=== PATIENT | female | born 1970 | race Caucasian/White ===

== ENCOUNTER 2024-03-02 10:25 | Outpatient (CLI) | payer OTHER, SELFPAY ==
--- OUTSIDE RECORDS SUMMARY | 2024-03-02 10:31 | XMS_ITS | Encounter Summary ---
Author Organization [facility] Address [address] [place] [address] Care Team Providers Care Non Food Receiving Clerk Name Role Phone Bro Damon P.A.-C., P.A. Primary Care Pr ovider Encounter Details Date Type Department Care Team (Late st Contact Info) Description 12/23/2016 Historical Ophthalmology [facility] Vincent Dietrich Jr., M.D. [address] [address] Social History Tobacco Use Types Packs/Day Years Used Date Smoking Tobacco: Never Sex and Gender Information Value Date Recorded Sex Assigned at Female 05/12/2020 4:36 PM CDT Gender Identity Female 10/06/2017 3:30 PM COFFEE ATTENDANT Sexual Orientation Straight 10/06/2017 3: 30 PM COFFEE ATTENDANT documented as of this encounter Progress Notes * Vincent Dietrich M.D. - 12/23/2016 1:35 PM CDT Eye General CHIEF COMPLAINT CE HISTORY OF PRESENT ILLNESS Thinks her vision could be better. Not sure if any specific distance has changed more. Around her left eye (starting 12-13 years ago) she has had changes. Before that she had a root canal done and caused bells palsy on the left side of her face. Sees a neurologist every 3 months for Botox injections for hemifacial blepharospasm. Now its been a while since she has seen him. [place]planed on the way [place] IMPRESSION / REPORT / PLAN #1 Blepharospasm OK for Botox if desired #2 Myopia and astigmatism Slight rx change Wants to try CL Not sure how will do with blepharospasm, but can try. DIAGNOSIS #1 Blepharospasm #2 Myopia and astigmatism CDM Reports - EYEGEN Id: [id number] Status: Fnl documented in this encounter Plan of Treatment Not on file documented as of this encounter Visit Diagnoses Not on filedocumented in this encounter Additional Health Concerns Infection Onset Date Last Indicated Resolved Time COVID19 Pending 06/17/2020 06/17/2020 06/18/2020 1 :36 PM COFFEE ATTENDANT COVID19 Pending 06/26/2020 06/26/2020 06/26/2020 1 1:29 PM COFFEE ATTENDANT COVID19 Pending 10/04/2020 10/04/2020 10/04/2020 9 :16 PM COFFEE ATTENDANT COVID19 Pending 10/01/2023 10/01/2023 10/01/2023 1 1:24 AM COFFEE ATTENDANT COVID19 Pending 10/01/2023 10/01/2023 10/01/2023 1 :37 PM COFFEE ATTENDANT documented as of this encounter Care Teams Non Food Receiving Clerk Relationship Specialty Start Date End Date Bro Damon P.A.-C., P.A. PCP - General 01/23/17 documented as of this encounter
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
--- OUTSIDE RECORDS SUMMARY | 2024-03-02 10:31 | XMS_ITS | Clinical Summary ---
Author Organization [facility] Address [address] [place] [address] Care Team Providers Care Medicare Coordinator Name Role Phone Bro Damon P.A.-C., P.A. Primary Care Pr ovider Source Comments Patient records contain information from all sites at [facility]. For routine questions regarding patient records, call [phone] during business hours, M-F 8:00 AM - 5:00 PM Central Time. 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 Express Care Online for Vaginal Yeast Infection (female anatomy, age 18-64 years) 12/16/2023 1:30 PM CDT - 12/16/2023 11:59 PM CDT Hospital Encounter Department of Laboratory Medicine in [place] [address] [place] [address] Garth Granger M.D. Menopausal And Female Climacteric States Discharge Disposition: Home or Self Care from Last 3 Months Immunizations Name Administration Dates Next Due HepB Adult (HEPLISAV-B) 05/19/2023 RZV (SHINGRIX) 05/19/2023 SARS-COV-2 (COVID-19) - MODERNA(Discontinued) ,10/19/2020 Td, (Adult) Unspecified 01/15/1996 Tdap 10/24/2021 Family History Medical History Relation Name Comments Anesthesia problems Father subhash lanza CABG x 3 - Coronary artery bypass grafts x 3 Father subahsh lanza Coronary artery disease Father subhash lanza Depression Father subhash lanza Diabetes Father subhash lanza Hyperlipidemia Father subhash lanza Hypertension Father subhash lanza Macular degeneration Father subhash lanza Rheum arthritis Father subhash lanza Sleep apnea Father subhash lanza Stroke Father subhash lanza Tuberculosis Father subhash lanza Depression Mother [place] lanza Hypothyroid Mother [place] lanza Migraines Mother [place] lanza Sleep apnea Mother ind[place] lanza Thyroid disease Mother ind[place] lanza Depression Sister 1 Hypothyroid Sister 1 Depression Sister 2 Hypothyroid Sister 2 Depression Sister 3 piper Obesity Sister 3 piper Rheum arthritis Sister 3 piper Sleep apnea Sister 3 piper Depression Sister 4 enedina Obesity Sister 4 enedina Sleep apnea Sister 4 enedina Relation Name Status Comments Father subhash lanza Mother [place] gutierresuard Sister 1 Sister 2 Sister 3 piper Sister 4 enedina Social History Tobacco Use Types Packs/Day Years Used Date Smoking Tobacco: Never Smokeless Tobacco: Never Tobacco Cessation:Counseling Given: Not Answered Alcohol Use Standard Drinks/Week Comments Not Currently 0 (1 standard drink = 0.6 oz pur e alcohol) Monthly [facility] Utilities Answer Date Recorded In the past 12 months has th e [employer], gas, oil, or water company threatened to shut off services in your [...] week 08/14/2022 How often do you attend chur or amish services? Patient declined 08/14/2022 Do you belong to any clubs o r organizations such as nondenominational groups, unions, fraternal or athletic groups, or [...] Answer Date Recorded PHQ-2 Score 6 11/13/2023 [facility] [place] of Occupat ional Health - Occupational Stress [...] your living situation today? I have a [facility] place to live 11/03/2023 Education Answer Date Recorded What is the highest level of school you have completed or the highest degree you have received? Associate degree: academic program 09/26/2019 Sex and Gender Information Value Date Recorded Sex Assigned at Female 05/12/2020 4:36 PM CDT Gender Identity Female 10/06/2017 3:30 PM GRAIN ELEVATOR MOTOR STARTER Sexual Orientation Straight 10/06/2017 3: 30 PM GRAIN ELEVATOR MOTOR STARTER Last Filed Vital Signs Vital Sign Reading [...] 11/03/2023 11:14 PM CDT Plan of Treatment Health Maintenance Due Date Last Done Comments CT Colonography 1972 Colonoscopy 1972 FIT 1972 COVID-19 Vaccine ( season) 2023 09/15/2021, 11/21/2020, 10/19/2020 Hepatitis B Vaccines (2 of 2 - CpG (Heplisav) 2-dose series) 06/16/2023 05/19/2023 Zoster Vaccines (2 of 2) 07/14/2023 05/19/2023 Depression Screening (Annual PHQ-2) 08/11/2023 Influenza Vaccine (#1) 2024 Mammogram 08/20/2024 08/20/2023, 06/12, 06/27/2021, Additional history exists Thyroid Stimulating Hormone (TSH) test for thyroid function 11/04/2024 11/05/2023, 11/03/2023, 09/27/2023, Additional history exists Cervical Cancer Screening 05/25/20252021 (Performed elsewhere), 02/22/2015 (Performed elsewhere) Cologuard 07/10/2026 07/10/2023 Colorectal Cancer Screening 07/10/2026 Fasting Glucose for Diabetes Screening 01/09/2027 01/10/2024, 11/03/2023, 09/27/2023, Additional history exists Lipid (Cholesterol) Screening 03/11/2028 03/11/2023, 04/25/2022, 09/19/2021, Additional history exists DTaP,Tdap,and Td Vaccines (2 - Td or Tdap) 10/25/2031 10/24/2021, 01/15/1996 HIV Screening Completed 09/19/2017 Hepatitis C Screening Completed 09/19/2017 Pneumococcal vaccine (0-64 years) Aged Out No longer eligible based on patient's age to complete this topic Medical Devices Implanted Type Area Grinding And Spraying Supervisor Device Identifier Shelf Expiration Date Model / Serial / Lot Screw-Matrixneur o Self-Drill Ti 4mm-Whiting [id number] Implanted:Qty: 7 on 09/19/2017 Hardware e.g. pins/screws /rods Cranial Depuy Synthes Description:Device Manufactu rer - Synthes. Device Status Text - [id number]. Mesh Rigid [place] 100mm X 100mm - Whiting [id number] Implanted:Qty: 1 on 09/19/2017 Hardware e.g. pins/screws /rods Depuy Synthes Description:Device Manufactu rer - Synthes. Device Status Text - [id number]. [place] Salvatore Fuzzy 1 X 1 - [place] [id number] Implanted:Qty: 1 on 09/19/2017 Mesh or Patch Brain EcoIntense Description:Device Manufactu [employer] Device Status Text - [id number]. [facility] Data - [id number]. Procedures Procedure Name Priority Date/Time Associated Diagnosis [...] inpatients and all outpatients) 08/20/2023 3:35 PM GRAIN ELEVATOR MOTOR STARTER Screening Mammogram Breast Cancer COLOGUARD Routine 07/10/2023 11:15 AM GRAIN ELEVATOR MOTOR STARTER Screening Cancer Colon LIPID PANEL, S Routine 03/11/2023 2:00 PM CDT Hyperlipidemia On Treatment Hypothyroidism Screening Examination Diabetes Mellitus BBF SOURCE PROFILE RAPID Routine 09/19/2017 11:05 AM GRAIN ELEVATOR MOTOR STARTER HIV-1/HIV-2 AB RAPID PT SOURCE, B Routine 09/19/2017 11:05 AM GRAIN ELEVATOR MOTOR STARTER from Last 3 Months or Most Recently Relevant to Health Maintenance Results * Estradiol - (for men, children, and post-menopausal women) (12/16/2023 1:45 PM CDT) Estradiol, Mass Spectrometry, S 89 pg/mL 12/19/2023 3:20 PM CDT [facility] Comment: ----REFERENCE VALUE---- Premenopausal: 15-350 (E2 levels vary widely through the menstrual cycle.) Postmenopausal: <10 ----ADDITIONAL INFORMATION---- This test was developed and its performance characteristics determined by [facility] in a manner consistent with CLIA requirements. This test has not been cleared or approved by the U.S. Food and Drug Administration. Blood (Blood, Venous) 12/16/2023 1:45 PM CDT 12/17/2023 7:46 AM CDT Garth Granger M.D. LAB BLOOD NON ADD- ON [facility] [address] [place] [address] [facility] [address] [place] [address] [place] [address] * (ABNORMAL) Testosterone, Total by Mass Spectrometry, Serum (12/16/2023 1:45 PM CDT) Testosterone, Total by Mass Spectrometry, Serum 100(H) 8 - 60 ng/dL 12/18/2023 11:54 PM CDT [facility] Comment: ----ADDITIONAL INFORMATION---- Testing performed by Liquid Chromatography-Tandem Mass Spectrometry (LC-MS/MS). This test was developed and its performance characteristics determined by [facility] in a manner consistent with CLIA requirements. This test has not been cleared or approved by the U.S. Food and Drug Administration. Blood (Blood, Venous) 12/16/2023 1:45 PM CDT 12/17/2023 7:24 AM CDT Garth Granger M.D. LAB BLOOD NON ADD- ON [facility] [address] [place] [address] [facility] [address] [place] [address] [place] [address] * Follicle-Stimulating Hormone (FSH), Serum (12/16/2023 1:45 PM CDT) Follicle-Stim Hormone (FSH), S 10.9 IU/L 12/17/2023 12:52 PM CDT [facility] Comment: ----REFERENCE VALUE---- Premenopausal: 2.9-14.6 IU/L (Follicular) 4.7-23.2 IU/L (Midcycle) 1.4-8.9 IU/L (Luteal) Postmenopausal: 16.0-157.0 IU/L Blood (Blood, Venous) 12/16/2023 1:45 PM CDT 12/17/2023 12:14 PM CDT Garth Granger M.D. LAB BLOOD ADD-ON Performing Organization Address City/[facility]/ZIP Co de Phone Number [facility] [address] [place] [address], [facility] [address] [place] [address] * (ABNORMAL) Thyroid Function [place] (11/05/2023 6:20 AM CDT) TSH, Sensitive 0.08(L) 0.3 - 4.2 mIU/L 11/05/2023 8:19 AM CDT [facility] Blood (Blood, Venous) 11/05/2023 6:20 AM CDT 11/05/2023 7:45 AM CDT George Eugene P.A.-C., M.S. LAB BLOOD A DD-ON [facility] [address] [place] [address], [place] DTL [facility] [address] [place] [address] * BI Breast Screening Bilateral with Tomosynthesis (08/20/2023 3:35 PM GRAIN ELEVATOR MOTOR STARTER) Anatomical Region Laterality Modality Breast, Breast Imaging RST L OS, Breast Imaging ARZ LOS, Breast Imaging FLA LOS Bilateral Mammography Impressions 08/20/2023 4:49 PM GRAIN ELEVATOR MOTOR STARTER Negative. RECOMMENDATION: ??Annual Screening Mammogram ASSESSMENT: ??BI-RADS: 1: Negative. Narrative 08/20/2023 4:49 PM GRAIN ELEVATOR MOTOR STARTER EXAM: ??BI BREAST SCREENING BILATERAL WITH TOMOSYNTHESIS [...] 1: Negative. Bro Damon P.A.-C., P.A. IMG BI P ROCEDURES * Cologuard - Sent Out Lab (07/10/2023 11:15 AM GRAIN ELEVATOR MOTOR STARTER) Result Negative Negative 07/19/2023 9:40 AM GRAIN ELEVATOR MOTOR STARTER EX[facility] Comment: NEGATIVE TEST RESULT. A negative [...] screened with both Cologuard and colonoscopy. (Erin Will. et al, N Engl J Med 2014;370(14):1754-2625) The normal value (reference range) for this assay is negative. COLOGUARD RE-SCREENING RECOMMENDATION: Periodic colorectal cancer screening is an important part of preventive healthcare for asymptomatic individuals at average risk for colorectal cancer. ??Following a negative Cologuard result, the [place] [employer] and U.S. Multi-Society Task Force screening guidelines recommend a Cologuard re-screening interval of 3 years. References: [place] [employer] Guideline for Colorectal Cancer Screening: https://www.cancer.org/cancer/cypmu-biikxk-muvwlq/detection- diagnosis-staging/acs-recommendations.html.; Joaquín MURPHY, Randy PATTEN, Latasha KochK, Colorectal Cancer Screening: Recommendations for Physicians and Patients from the U.S. Multi-Society Task Force on Colorectal Cancer Screening , Am J Gastroenterology 2017; 112:2499-4654. TEST DESCRIPTION: Composite algorithmic analysis of stool [...] screened with both Cologuard and colonoscopy. (Erin Montgomery et al, N Engl J Med 2014;370(14):4635-9388.) Cologuard may produce a false negative or false positive result (no colorectal cancer or precancerous polyp present at colonoscopy follow up). A negative Cologuard test result does not guarantee the absence of CRC or advanced adenoma (pre-cancer). The current Cologuard screening interval is every 3 years. ([place] [employer] and U.S. Multi-Society Task Force). Cologuard performance data in a 10,000 patient pivotal study using colonoscopy as the reference method can be accessed at the following location: www.Akoha/results. Additional description of the Cologuard test process, warnings and precautions can be found at www.[employer]. Stool (Stool) 07/10/2023 11: 15 AM GRAIN ELEVATOR MOTOR STARTER 07/12/2023 10:52 AM GRAIN ELEVATOR MOTOR STARTER Bro Damon P.A.-C. P.A. LAB BODY FLUIDS AND STOOLS ORDERABLES [employer] [address] [place] [address] EX [employer] [address] [place] [address], [address] [place] [address] * (ABNORMAL) Lipid Panel (03/11/2023 2:00 PM [...] 03/11/2023 3:34 PM CDT Bro Damon P.A.-C., P.A. LAB BLOO D ADD-ON [facility] [address] [place] [address], [facility] OWAT [facility] in [place] [address] [place] [address] * HIV-1/HIV-2 Ab Rapid (09/19/2017 11:05 AM GRAIN ELEVATOR MOTOR STARTER) HIV-1/HIV-2 Ab Rapid, P Negative Negative [facility] Comment:Drawn in [place] 09/19/2017 11:0 5 AM GRAIN ELEVATOR MOTOR STARTER 09/19/2017 11:05 AM GRAIN ELEVATOR MOTOR STARTER Narrative [facility] - 09/19/2017 11:43 AM GRAIN ELEVATOR MOTOR STARTER [place]wn [place] Dalia Conner M.D. LAB MICROBIOLOGY - BLOOD ORDERABLES Performing Organization Address City/[facility]/ZIP Co de Phone Number [facility] [address] * BBF Source Profile Rapid (09/19/2017 11:05 AM GRAIN ELEVATOR MOTOR STARTER) HBs Antigen Patient Source, S Negative Negative [facility] Comment:[place]wn [place] HCV Ab Screen Patient Source, S Negative Negative [facility] Comment: [place] ? Comjov-cv-tmkert ratio is <1.00. ? 09/19/2017 11:0 5 AM GRAIN ELEVATOR MOTOR STARTER 09/19/2017 11:05 AM GRAIN ELEVATOR MOTOR STARTER Narrative [facility] - 09/19/2017 3:32 PM GRAIN ELEVATOR MOTOR STARTER [place]wn [place] Dalia Conner M.D. LAB MICROBIOLOGY - BLOOD ORDERABLES Performing Organization Address City/[facility] Co de Phone Number [facility] [address] from Last 3 Months or Most Recently Relevant to Health Maintenance Advance Directives For more information, please contact: [phone] * Full Code (Latest Code Status on [...] Answer Comments Full Code: Discussed Care Teams Medicare Coordinator Relationship Specialty Start Date End Date Bro Damon P.A.-C., P.A. PCP - General 01/23/17
--- OUTSIDE RECORDS SUMMARY | 2024-03-02 10:31 | XMS_ITS | Encounter Summary ---
Author Organization [facility] Address [address] [place] [address] Care Team Providers Care Stone Mason Name Role Phone Bro Damon P.A.-C., P.A. Primary Care Pr ovider Encounter Details Date Type Department Care Team (Late st Contact Info) Description 01/10/2017 Historical Ophthalmology [facility] Vincent Dietrich Jr., M.D. [address] [address] Social History Tobacco Use Types Packs/Day Years Used Date Smoking Tobacco: Never Sex and Gender Information Value Date Recorded Sex Assigned at Female 05/12/2020 4:36 PM CDT Gender Identity Female 10/06/2017 3:30 PM POT PUSHER Sexual Orientation Straight 10/06/2017 3: 30 PM POT PUSHER documented as of this encounter Progress Notes * Vincent Dietrich M.D. - 01/10/2017 8:26 AM CDT Eye General CHIEF COMPLAINT recheck glasses HISTORY OF PRESENT ILLNESS with new glasses she needs to tilt her head to the left to see clearly. when she was waiting for her glasses to come in she bought a cheap pair that worked better than thedigital lenses she has now IMPRESSION / REPORT / PLAN Rx check Slight rx change recheck optical centers Patient here for a glasses check. #1 Myopia and astigmatism Change in prescription New glasses, recheck optical centers. DIAGNOSIS #1 Myopia and astigmatism CDM Reports - EYEGEN Id: [id number] Status: Fnl documented in this encounter Plan of Treatment Not on file documented as of this encounter Visit Diagnoses Not on filedocumented in this encounter Additional Health Concerns Infection Onset Date Last Indicated Resolved Time COVID19 Pending 06/17/2020 06/17/2020 06/18/2020 1 :36 PM POT PUSHER COVID19 Pending 06/26/2020 06/26/2020 06/26/2020 1 1:29 PM POT PUSHER COVID19 Pending 10/04/2020 10/04/2020 10/04/2020 9 :16 PM POT PUSHER COVID19 Pending 10/01/2023 10/01/2023 10/01/2023 1 1:24 AM POT PUSHER COVID19 Pending 10/01/2023 10/01/2023 10/01/2023 1 :37 PM POT PUSHER documented as of this encounter Care Teams Stone Mason Relationship Specialty Start Date End Date Bro Damon P.A.-C., P.A. PCP - General 01/23/17 documented as of this encounter
--- OUTSIDE RECORDS SUMMARY | 2024-03-02 10:31 | XMS_ITS | Encounter Summary ---
Author Organization [facility] Address [address] [place] [address] Care Team Providers Care Trauma Registrar Name Role Phone Bro Damon P.A.-C., P.A. Primary Care Pr ovider Encounter Details Date Type Department Care Team (Latest Contact Info) Description 12/16/2023 1:30 PM CDT - 12/16/2023 11:59 PM CDT Hospital Encounter Department of Laboratory Medicine in [place], [place] [address] [place] [phone] Garth Granger M.D. [address] [place] [phone] Menopausal And Female Climacteric States Discharge Disposition: Home or Self Care Social History Tobacco Use Types Packs/Day Years Used Date Smoking Tobacco: Never Smokeless Tobacco: Never Alcohol Use Standard Drinks/Week Comments Not Currently 0 (1 standard drink = 0.6 oz pur e alcohol) Monthly [facility] Utilities Answer Date Recorded In the past 12 months has e [employer], gas, oil, or water [employer] threatened to shut off services in your [...] How often do you attend chur or restorationism services? Patient declined 08/14/2022 Do you belong to any clubs o r organizations such as muslim groups, unions, fraternal or athletic groups, or [...] Answer Date Recorded PHQ-2 Score 6 11/13/2023 [facility] [place] of Occupat ional Health - Occupational Stress [...] your living situation today? I have a [facility] place to live 11/03/2023 Education Answer Date Recorded What is the highest level of school you have completed or the highest degree you have received? Associate degree: academic program 09/26/2019 Sex and Gender Information Value Date Recorded Sex Assigned at Female 05/12/2020 4:36 PM CDT Gender Identity Female 10/06/2017 3:30 PM COLLECTIONS REPRESENTATIVE Sexual Orientation Straight 10/06/2017 3: 30 PM COLLECTIONS REPRESENTATIVE documented as of this encounter Medications at Time of Discharge Medication Sig Dispensed Refills Start Date End Date triamcinolone (KENALOG) 0.1 % dental paste APPLY TO THE AFFECTED AREA TWICE DAILY NEEDED 15 g 10/13/2023 azelaic acid (FINACEA) 15 % gel Apply 1 Application topically daily. celecoxib (CeleBREX) 200 mg capsule Take 200 mg by mouth 2 (two) times a day. 08/21/2023 cyanocobalamin, vitamin B-12, (VITAMIN B12) 1,000 mcg/mL injection Inject 1 mL (1,000 mcg total) under the skin every 30 (thirty) days. 1 mL 1 10/03/2023 dextroamphetamine-amp hetamine (ADDERALL) 30 mg tablet Take 30 mg by mouth 2 (two) times a day before breakfast and lunch. 01/24/2021 estradioL 6 mg pellet by implant route. Dose unknown famotidine-Ca carb-mag hydrox (PEPCID COMPLETE) 10-800-165 mg per chewable tablet Chew 1 tablet daily as needed for heartburn (only takes if out of omeprazole). HYDROcodone-acetamino phen (NORCO) 10-325 mg per tabletIndications:Chr onic Pain/Nonacute Pain Take 1 tablet by mouth daily as needed for severe pain or score 7-10 of 10 Indication: Chronic Pain/Nonacute Pain. 11/07/2023 hydrOXYzine (ATARAX) 25 mg tablet Take 1 tablet (25 mg total) by mouth 3 (three) times a day as needed for anxiety. 20 tablet 09/15/2023 lamoTRIgine (LaMICtaL) 100 mg tablet Take 200 mg by mouth at bedtime. 01/27/2021 levonorgestreL (LILETTA) 20.4 mcg/24 hrs (8 yrs) 52 mg IUD 1 each by intrauterine route continuously. omeprazole (PriLOSEC OTC) 20 mg EC tablet Take 40 mg by mouth daily. Retin-A 0.025 % cream Apply 1 Application topically at bedtime. 08/28/2023 simvastatin (ZOCOR) 20 mg tablet Take 1 tablet (20 mg total) by mouth at bedtime. 90 tablet 3 05/19/2023 05/18/2024 testosterone 50 mg pellet by implant route. Dose unknown traZODone (DESYREL) 150 mg tablet Take 1 tablet (150 mg total) by mouth at bedtime. 14 tablet 11/12/2023 levothyroxine (SYNTHROID, LEVOTHROID) 88 mcg tablet Take 1 tablet (88 mcg total) by mouth every morning before breakfast. 30 tablet 11/08/2023 01/01/2024 documented as of this encounter Plan of Treatment Not on file documented as of this encounter Procedures Procedure Name Priority Date/Time Associated Diagnosis Comments ESTRADIOL, S Routine 12/16/2023 1:45 PM CDT Menopausal And Female Climacteric States TESTOSTERONE, TOTAL BY MASS SPECROMETRY, S Routine 12/16/2023 1:45 PM CDT Menopausal And Female Climacteric States FOLLICLE-STIM HORMONE (FSH), S Routine 12/16/2023 1:45 PM CDT Menopausal And Female Climacteric States documented in this encounter Results * (ABNORMAL) Testosterone, Total by Mass Spectrometry, Serum (12/16/2023 1:45 PM CDT) Testosterone, Total by Mass Spectrometry, Serum 100(H) 8 - 60 ng/dL 12/18/2023 11:54 PM CDT [facility] Comment: ----ADDITIONAL INFORMATION---- Testing performed by Liquid Chromatography-Tandem Mass Spectrometry (LC-MS/MS). This test was developed and its performance characteristics determined by [facility] in a manner consistent with CLIA requirements. This test has not been cleared or approved by the U.S. Food and Drug Administration. Blood (Blood, Venous) 12/16/2023 1:45 PM CDT 12/17/2023 7:24 AM CDT Garth Granger M.D. LAB BLOOD NON ADD- ON [facility] [address] [place] [address] [facility] [address] [place] [address] [place] [address] * Estradiol - (for men, children, and post-menopausal women) (12/16/2023 1:45 PM CDT) Pathologist [facility] Estradiol, Mass Spectrometry, S 89 pg/mL 12/19/2023 3:20 PM CDT [facility] Comment: ----REFERENCE VALUE---- Premenopausal: 15-350 (E2 levels vary widely through the menstrual cycle.) Postmenopausal: <10 ----ADDITIONAL INFORMATION---- This test was developed and its performance characteristics determined by [facility] in a manner consistent with CLIA requirements. This test has not been cleared or approved by the U.S. Food and Drug Administration. Blood (Blood, Venous) 12/16/2023 1:45 PM CDT 12/17/2023 7:46 AM CDT Garth Granger M.D. LAB BLOOD NON ADD- ON Performing Organization Address City/[facility]/ZIP Co de Phone Number [facility] [address] [place] [address] [facility] [address] [place] [address] [place] [address] * Follicle-Stimulating Hormone (FSH), Serum (12/16/2023 1:45 PM CDT) Follicle-Stim Hormone (FSH), S 10.9 IU/L 12/17/2023 12:52 PM CDT [facility] Comment: ----REFERENCE VALUE---- Premenopausal: 2.9-14.6 IU/L (Follicular) 4.7-23.2 IU/L (Midcycle) 1.4-8.9 IU/L (Luteal) Postmenopausal: 16.0-157.0 IU/L Blood (Blood, Venous) 12/16/2023 1:45 PM CDT 12/17/2023 12:14 PM CDT Garth Granger M.D. LAB BLOOD ADD-ON Performing Organization Address City/[facility]/ZIP Co de Phone Number [facility] [address] [place] [address], [facility] DTL [facility] [address] [place] [address] documented in this encounter Visit Diagnoses Diagnosis Menopausal And Female Climacteric States documented in this encounter Additional Health Concerns Assessment Noted Time PHQ-9 Depression Total Score: 15 024 12:00 PM CDT documented as of this encounter Care Teams Trauma Registrar Relationship Specialty Start Date End Date Bro Damon P.A.-C., P.A. PCP - General 01/23/17 documented as of this encounter
--- OUTSIDE RECORDS SUMMARY | 2024-03-02 10:31 | XMS_ITS ---
Author Organization [facility] Address [address] [place] [address] Care Team Providers Care Stevedoring Supervisor Name Role Phone Unavailable Unavailable Unavailable Surgery Details Not on file Complications Check Surgery Details section. Procedure Estimated Blood Loss Check Surgery Details section. Procedure Findings Check Surgery Details section. Procedure Specimens Taken Check Surgery Details section.
--- OUTSIDE RECORDS SUMMARY | 2024-03-02 10:31 | XMS_ITS | Encounter Summary ---
Author Organization [facility] Address [address] [place] [address] Care Team Providers Care Supervisor [place] Name Role Phone Marisol Bro Kilpatrick P.A.-C., P.A. Primary Care Pr ovider Encounter Details Date Type Department Care Team (Late st Contact Info) Description 05/21/2017 Historical Ophthalmology [facility] Asad Levin M.D. [address], [place] [phone] Social History Tobacco Use Types Packs/Day Years Used Date Smoking Tobacco: Never Sex and Gender Information Value Date Recorded Sex Assigned at Female 05/12/2020 4:36 PM CDT Gender Identity Female 10/06/2017 3:30 PM TIMING INSPECTOR Sexual Orientation Straight 10/06/2017 3: 30 PM TIMING INSPECTOR documented as of this encounter Progress Notes * Asad Levin M.D. - 05/21/2017 3:57 PM CDT Eye General CHIEF COMPLAINT Botox / Facial Spasms HISTORY OF PRESENT ILLNESS Pt here today for Botox unjections for facial spasms. Has diagram from neurology in [place], would like injections the same as the diagram. wants to consider surgery for hemifacial spasm IMPRESSION / REPORT / PLAN #1 Hemifacial Spasm wants botox wants Neurology appointment to consider surgical repair botox 30 units see sheet DIAGNOSIS #1 Hemifacial Spasm CDM Reports - EYEGEN Id: [id number] Status: Fnl documented in this encounter Plan of Treatment Not on file documented as of this encounter Visit Diagnoses Not on filedocumented in this encounter Additional Health Concerns Infection Onset Date Last Indicated Resolved Time COVID19 Pending 06/17/2020 06/17/2020 06/18/2020 1 :36 PM TIMING INSPECTOR COVID19 Pending 06/26/2020 06/26/2020 06/26/2020 1 1:29 PM TIMING INSPECTOR COVID19 Pending 10/04/2020 10/04/2020 10/04/2020 9 :16 PM TIMING INSPECTOR COVID19 Pending 10/01/2023 10/01/2023 10/01/2023 1 1:24 AM TIMING INSPECTOR COVID19 Pending 10/01/2023 10/01/2023 10/01/2023 1 :37 PM TIMING INSPECTOR documented as of this encounter Care Teams Supervisor [place] Relationship Specialty Start Date End Date Bro Damon P.A.-C., P.A. PCP - General 01/23/17 documented as of this encounter
--- OUTSIDE RECORDS SUMMARY | 2024-03-02 10:31 | XMS_ITS | Encounter Summary ---
Author Organization [facility] Address [address] [place] [address] Care Team Providers Care Casting Technician Name Role Phone Marisol Bro Kilpatrick P.A.-C., P.A. Primary Care Pr ovider Encounter Details Date Type Department Care Team (Late st Contact Info) Description 01/13/2024 10:00 AM CDT E-Visit [facility] [address] [place] [phone] Jody Bowen APRN, C.N.P., M.S.N. [address] [place] [phone] Express Care Online for Vaginal Yeast Infection (female anatomy, age 18-64 years) Social History Tobacco Use Types Packs/Day Years Used Date Smoking Tobacco: Never Smokeless Tobacco: Never Alcohol Use Standard Drinks/Week Comments Not Currently 0 (1 standard drink = 0.6 oz pur e alcohol) Monthly [facility] Utilities Answer Date Recorded In the past 12 months has e [employer], gas, oil, or water company threatened to [...] How often do you attend chur or jainism services? Patient declined 08/14/2022 Do you belong to any clubs o r organizations such as zoroastrian groups, unions, fraternal or athletic groups, or [...] Answer Date Recorded PHQ-2 Score 6 11/13/2023 [facility] [place] of Occupat ional Health - Occupational Stress [...] your living situation today? I have a [facility] place to live 11/03/2023 Education Answer Date Recorded What is the highest level of school you have completed or the highest degree you have received? Associate degree: academic program 09/26/2019 Sex and Gender Information Value Date Recorded Sex Assigned at Female 05/12/2020 4:36 PM CDT Gender Identity Female 10/06/2017 3:30 PM RACKING TECHNICIAN Sexual Orientation Straight 10/06/2017 3: 30 PM RACKING TECHNICIAN documented as of this encounter Plan of Treatment Not on file documented as of this encounter Visit Diagnoses Diagnosis Vaginitis- Primary documented in this encounter Additional Health Concerns Assessment Noted Time PHQ-9 Depression Total Score: 15 024 12:00 PM CDT documented as of this encounter Care Teams Casting Technician Relationship Specialty Start Date End Date Bro Damon P.A.-C., P.A. PCP - General 01/23/17 documented as of this encounter
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
--- OUTSIDE RECORDS SUMMARY | 2024-03-02 10:32 | XMS_ITS | Patient Health Record ---
Author Organization [facility] Address [address] [place] [address] Care Team Providers Care Sort Supervisor Name Role Phone Garth Granger Primary Care Provider Mirta Jose Manuelevermelinda Unavailable [phone] Aydee Xochitl Unavailable [phone] Allergies Allergen (clinical drug ingredient) Drug/Non Drug Allergy documented on EMR Reaction Allergy Type Onset Date Status Wellbutrin Hives Drug Allergy Active fluoxetine Fluoxetine rash Drug Allergy Activ e Results Component Value Reference Range Notes Test, Urine Reviewed date:12/22/2023 11:48:51 AM Interpretation:Negative Performing Lab: Notes/Report: Negative Test, Urine Negative Negative - Test, Urine Reviewed date:10/06/2023 10:48:47 AM Interpretation:Negative Performing Lab: Notes/Report: Negative Test, Urine Negative Negative - Sensitive Estradiol (IH) Reviewed date:06/26/2023 06:18:36 PM Interpretation: Performing Lab: Notes/Report: Access 2 ([id number]), Access 2 Rel[facility] Testosterone, Total (IH) Reviewed date:06/26/2023 06:18:36 PM Interpretation: Performing Lab: Notes/Report: Access 2 ([id number]), Access 2 Relaylink FSH (IH) Reviewed date:06/26/2023 06:18:36 PM Interpretation: Performing Lab: Notes/Report: Access 2 ([id number]), Access 2 Relaylink Test, Urine Reviewed date:03/25/2023 01:36:42 PM Interpretation:Negative Performing Lab: Notes/Report: Negative Test, Urine Negative Negative - Test, Urine Reviewed date:06/23/2023 11:12:04 AM Interpretation: Performing Lab: Notes/Report: Test, Urine Negative Negative - Reason For Referral No Information Medications Medication SIG (Take, Route, Frequency, Duration) Notes Start Date End Date Status Testosterone Pellets Active Estrogen Pellets Act araceli Azelaic Acid 15 % APPLY TOPICALLY TO THE FACE EVERY MORNING. for 20 Active traZODone HCl 100 MG 2 tablets at bedtim e Orally Once a day Active Trintellix 5 MG 1 tablet Orally Once a day Active Adderall 30 MG 1 tablet Orally Twice a day Active Propranolol HCl ER 60 MG 1 capsule Orally Once a day Active Levothyroxine 100 MCG 1 capsule Orally Once a day Active Liletta (52 MG) 20.1 MCG/DAY as directed Intrauterine inserted 11/01/21 Active Tretinoin 0.025 % APPLY 1 APPLICATION TOPICALLY MIX A PEA SIZED AMOUNT WITH MOISTURIZER AND APPLY TO ENTIRE FACE AT BEDTIME for 90 Active Wegovy 0.25 MG/0.5ML 0.5 mL Subcutaneous once weekly Active Vitamin D3 not sure of dose. Takes daily. Active Simvastatin 20 MG 1 tablet in the evening Orally Once a day Active LaMICtal 200 MG 1 tablet Orally Once a day Active B Complex - Orally daily Active Magnesium 200 MG 2 tablets with a meal Orally Once a day 400mg daily Active Social History Tobacco Use: Social History Observation Description Date Details (start date - stop date) Never Smoker NA - NA Tobacco Use/Smoking Question Answer Notes Are you a nonsmoker Alcohol Screen (Audit-C) Question Answer Notes Did you have a drink containing alcohol in the p ast year? No Points 0 Interpretation Negative Sexual History Question Answer Notes Had sex in the past 12 months (vaginal, oral, or anal)? Yes Problems Problem Type SNOMED Code ICD Code Onset Dates Problem Status W/U Status Risk Notes Problem Muscle atrophy (05917374) Muscle wasting and atrophy, not elsewhere classified, unspecified site (M62.50) Active confirmed Problem Urge incontinence of urine (53438398) Urge incontinence (N39.41) Active confirmed Problem Incontinence without sensory awareness (931668253) Incontinence without sensory awareness (N39.42) Active confirmed Problem Mixed incontinence (397755773) Mixed incontinence (N39.46) Active confirmed Problem Menopause (444501153) Menopausal and female climacteric states (N95.1) Active confirmed Problem Menopausal and postmenopausal disorders (878060295) Unspecified menopausal and perimenopausal disorder (N95.9) Active confirmed Problem SI - Stress incontinence (91870810) Stress incontinence (N39.3) Active confirmed Problem 15827407 Ovarian dysfunction (E28.9) Active confirmed Problem 35698413583293 Abnormal uterine bleeding (N93.9) Active confirmed Problem Female climacteric state (082340359) Female climacteric state (N95.1) Active confirmed Problem Endocrine/metaboli c screening (218516032) Screening for endocrine disorder (Z13.29) Active confirmed Problem 5927178 Spotting (N92.0) Active confirmed Problem 12223343 Breakthrough bleeding (N92.1) Active confirmed Problem 01520708 JULES (stress urinary incontinence, female) (N39.3) Active confirmed Problem 947356862 OAB (overactive bladder) (N32.81) Active confirmed Problem Abnormal vaginal bleeding (044507815) Abnormal vaginal bleeding (N93.9) Active confirmed Problem 700769441854711 Perimenopause (N95.1) Active confirmed Problem 61301847 Urinary incontinence, urge (N39.41) Active confirmed Problem 653621950 Menopausal disorder (N95.9) Active confirmed Problem Lipid screening (375075791) Lipid screening (Z13.220) Active confirmed Problem Menopausal and postmenopausal disorders (103722560) Menopausal and postmenopausal disorder (N95.9) Active confirmed Problem Pre-procedure la b exam (Z01.812) Active confirmed Problem Gynecologic examination (32496559) Encounter for gynecological examination (Z01.419) Active confirmed Problem 556011477 BMI 35.0-35.9,adult (Z68.35) Active confirmed Problem Metabolic screening test (210203377) Screening for metabolic disorder (Z13.228) Active confirmed Vital Signs Blood pressure diastolic 76 mm Hg 12/22/2023 Height 67.5 in 12/22/2023 Blood pressure systolic 108 mm Hg 12/22/2023 Weight 248 lbs 12/22/2023 BMI 38.26 kg/m2 12/22/2023 Encounters Encounter Location Date Provider Diagnosis [address] [place], [place] [id number] 06/23/2023 Xochitl Scherzer Acne L70.9 and Radha da infection B37.9 [facility] [address] [place] [address] 03/25/2023 Garth Granger Pre-procedure lab ex am Z01.812 and Menopausal and female climacteric states N95.[address] [facility] [place] [address] [place] [address] 06/23/2023 Garth Granger Ovarian dysfunction E28.9 ; Menopausal and female climacteric states N95.1 and Pre-procedure lab exam Z01.812 [facility] [address] [place] [address] 09/26/2023 Christopher Mirta Unspecified menopaus al and perimenopausal disorder N95.9 and Preprocedural examination Z01.818 [facility] [address] [place] [address] 12/22/2023 Garth Granger Menopausal and femal e climacteric states N95.1 and Pre-procedure lab exam Z01.812 [facility] [address] [place] [address] 06/19/2023 Garth Granger Menopausal and femal e climacteric states N95.1 [place] [address] [place] [address] 08/26/2023 Garth Granger Menopausal and femal e climacteric states N95.1 [facility] [place] [address] [place] [address] 03/12/2023 [place] [place] [address] [place] [address] 03/05/2023 Garth Granger [facility] [address] [place] [address] 01/15/2024 Garth Granger Assessments Encounter Date Diagnosis (ICD Code) Assessment Notes Treat ment Notes Treatment Clinical Notes 06/23/2023 Ovarian dysfunction (ICD-10 - E28.9) 52 yo F with Menopausal and female climacteric states. I reviewed with her that her symptoms suggest that she may need to return for repeat insertions earlier. I suggest 2.5 months between each insertion. Her labs indicate that she is in good timing for pellets, but she began to have symptoms 1 month ago. We also discussed adrenal fatigue testing. She states that she has purchased this testing kit, but has not completed this. I recommend that she complete adrenal fatigue testing. If this testing were to indicate an adrenal component, this would help to explain her decreased energy, development of acne, and difficult weight control. We discussed that if testing were to reveal adrenal fatigue, and she were to begin an adrenal supplement, we could then consider returning her to an every 3 month timing for pellets. This will be discussed at a later date. She understands. The patient tolerated the procedure well today. Discharge instructions were reviewed and are understood. She will follow up in 2 months for her next pellet insertion. 12/22/2023 Menopausal and femal e climacteric states (ICD-10 - N95.1) 53 yo F with Menopausal and female climacteric states. The patient tolerated the procedure well today. Discharge instructions were reviewed and are understood. She will follow up in 3-4 months for her next pellet insertion. C-Testosterone 87.5mg: Lot: [id number] Exp: 02/10/24 Estradiol 15mg: Lot: [id number] Exp: 05/10/24 12/22/2023 Pre-procedure lab exam (ICD-10 - Z01.812) 08/26/2023 Menopausal and femal e climacteric states (ICD-10 - N95.1) 52 yo F with Menopausal and female climacteric states. I reviewed with the patient that her testosterone level resulted high at 204. This means that she cannot receive her pellets today. It suggests that she is too early to receive her pellets today. With a lab result of 204 at 2 months post-insertion, I may need to decrease her testosterone dose at next insertion. She understands. She will follow up with me in about 1 month with labs drawn 1 week prior. 09/26/2023 Unspecified menopausal and perimenopausal disorder (ICD-10 - N95.9) Hormone pellets inserted today per patient desires and medical recommendation. After care and follow up instructions were reviewed with patient in great detail. Patient to consider Functional Medicine appointment with Johnny Padilla. Patient states that all questions have been answered to her satisfaction. 03/25/2023 Menopausal and femal e climacteric states (ICD-10 - N95.1) 52 yo F with Menopausal and female climacteric states. The patient tolerated the procedure well today. Discharge instructions were reviewed and are understood. She will follow up in 3 months for her next pellet insertion. C-Testosterone 87.5mg: Lot: [id number] Exp: 04/21/23 Estradiol 15mg: Lot: [id number] Exp: 11/14/23 03/25/2023 Pre-procedure lab exam (ICD-10 - Z01.812) 06/19/2023 Menopausal and femal e climacteric states (ICD-10 - N95.1) 06/23/2023 Acne (ICD-10 - L70.9) Moderate acne on face. Discussed options of treating acne such as oral medication & topicals. She would like to proceed with topicals at this time. Prescribed azelaic acid 15% gel to use in the morning and tretinoin 0.025% cream to use nightly. Discussed the potential side effects of dry, flaking skin and irritation and explained that this can be mixed with a moisturizer or a moisturizer can be applied over the top. The dryness and irriation should go away after about 2 weeks of use. Advised her that topicals can take 2-3 months to show effectiveness. She will follow up if not improving or worsening. 06/23/2023 Phil infection (ICD-10 - B37.9) Recurrent phil intertrigo in between breasts. No rash present today. Advised her to mix zinc oxide paste with anti-fungal cream and apply twice daily during flares. 06/23/2023 Menopausal and femal e climacteric states (ICD-10 - N95.1) 09/26/2023 Preprocedural examination (ICD-10 - Z01.818) 06/23/2023 Pre-procedure lab exam (ICD-10 - Z01.812) 03/25/2023 Other Total face to face time is 30 minutes, with > 50% of time spent in counseling regarding diagnosis, risks and benefits of various treatment plans and expected outcomes., Portions of this note were transcribed by byron Ny. Dr. Granger personally performed the history, physical exam and medical decision making; and confirmed the accuracy of the information in the transcribed note Authenticated by Dr. Granger. 06/23/2023 Other Total face to face time is 30 minutes, with > 50% of time spent in counseling regarding diagnosis, risks and benefits of various treatment plans and expected outcomes., Portions of this note were transcribed by byron Ny. Dr. Granger personally performed the history, physical exam and medical decision making; and confirmed the accuracy of the information in the transcribed note Authenticated by Dr. Granger. C-Testosterone 87.5mg: Lot: [id number] Exp: 10/07/23 Estradiol 15mg: Lot: [id number] Exp: 01/24/24 06/23/2023 Other Total time spent 30 minutes face to face with patient, reviewing records and charting. 08/26/2023 Other Total face to face time is minutes, with > 50% of time spent in counseling regarding diagnosis, risks and benefits of various treatment plans and expected outcomes., Portions of this note were transcribed by byron Ny. Dr. Granger personally performed the history, physical exam and medical decision making; and confirmed the accuracy of the information in the transcribed note Authenticated by Dr. Granger. 09/26/2023 Other Ice pack x20min, 5 times today Follow up: 3 months 12/22/2023 Other Total face to face time is minutes, with > 50% of time spent in counseling regarding diagnosis, risks and benefits of various treatment plans and expected outcomes., Portions of this note were transcribed by byron Ny. Dr. Granger personally performed the history, physical exam and medical decision making; and confirmed the accuracy of the information in the transcribed note Authenticated by Dr. Granger. Plan Of Treatment Next Appt Details Provider Name:Garth Johnson rd, 03/22/2024 02:00:00 PM, [address] [place], [address], Insurance Providers Payer Name Payer Address Payer Phone Subscriber Number Group Number Insured Name Patient Relationship to Insured Coverage Start Date Coverage End Date [employer] [place] [address] [address] [place] [id number] Self - patient is the insured 9 Medications Administered Medication Instructions Date of Administration Dosage Notes Toradol 04/12/2021 Medical (General) History Medical History History ICD Code Anemia High Cholesterol Thyroid disease depression/anxiety Electroconvulsive therapy (ECT) Surgical History Surgery Date(Month/Year) Hysteroscopy D and C 06/12/2018 Microvascular decompression surgery 2017 Bladder sling with vaginal tissue approx 2014 2006 Cholecystectomy approx 2011 Hernia surgery age 6 Pubovaginal sling with Altis 10/05/2020 tubal ligation Hysteroscopy D& C 04/12/2021 R. carpal tunnel 08/22/2022 Hospitalization History Reason Date(Month/Year) Suicidal ideations 08/2023
--- OUTSIDE RECORDS SUMMARY | 2024-03-02 10:32 | XMS_ITS | Clinical Summary ---
Author Organization [facility] Address [place], [place] [address] Care Team Providers Care Geoduck Diver Name Role Phone Bro Damon Primary Care Provider [phone] Allergies Active Allergy Reactions Criticality Noted Date Comments Bupropion Hives Medium 12/15/2016 Other reaction(s): Hives Olanzapine-Fluoxetine Anxiety,Rash Medium 11/03/2023 Medications Medication Sig Dispensed Refills Start Date End Date Status simvastatin (ZOCOR) 20 mg tablet Take 20 mg by mouth at bedtime. 3 05/04/2017 Active levothyroxine (SYNTHROID) 100 mcg tablet Take 100 mcg by mouth once daily. Active propranoloL (INDERAL) 10 mg tablet Take 10 mg by mouth 3 times daily if needed (Anxiety). 02/05/2021 Active tiZANidine (ZANAFLEX) 4 mg tabletIndications:DD D (degenerative disc disease), cervical Take 0.5-1 Tablets (2-4 mg) by mouth every 6 hours if needed for Muscle Spasm. 24 Tablet 1 01/17/2022 Active pantoprazole (PROTONIX) 40 mg delayed-release tablet 05/02/2022 Active levonorgestre1 (Liletta) 20.1 mcg/24 hrs (6 yrs) 52 mg intrauterine device (IUD) Inject 1 Device intrauterine one time for 1 dose. 1 Each 06/28/2022 Active famotidine (PEPCID ORAL) Take by mouth once daily. Active ibuprofen (ADVIL; MOTRIN) 600 mg tabletIndications:CM C DJD(carpometacarpal degenerative joint disease), localized primary, left,Carpal tunnel syndrome on left Take 1 Tablet (600 mg) by mouth every 6 hours if needed for Pain. Maximum of 3200 mg in 24 hours. 30 Tablet 10/17/2022 Active lamoTRIgine (LAMICTAL) 200 mg tablet Take 1 Tablet (200 mg) by mouth at bedtime. 30 Tablet 2 10/25/2022 Active traZODone (DESYREL) 100 mg tablet Take 2 Tablets (200 mg) by mouth at bedtime. 60 Tablet 2 10/25/2022 Active Amphetamine-Dextroam phetamine (AdderalL) 30 mg tablet Take 1 Tablet (30 mg) by mouth two times daily. 60 Tablet 02/17/2023 Active durable medical equipment (DME)Indications:Carmen ntar fasciitis of right foot Plantar Fasciitis Night Splint, Medium [id number] Length of Use: 99 months 08/21/2023 Active semaglutide (Wegovy) 0.25 mg/0.5 mL pen Inject 0.25 mg subcutaneous once weekly. 2 mL 11/18/2023 Active ondansetron (ZOFRAN ODT) 4 mg disintegrating tabletIndications:Ac [place] cystitis with hematuria,Pelvic pain Place 1 Tablet (4 mg) on the tongue every 8 hours if needed for Nausea/Vomiting. 9 Tablet 01/10/2024 Active HYDROcodone-acetamin ophen (10-325 mg/tablet)Indication s:Lumbar radiculopathy Take 1 Tablet by mouth 3 times daily if needed for Pain. Max acetaminophen 4000mg in 24 hours. 18 Tablet 01/29/2024 Active Active Problems Problem Noted Date Diagnosed Date Severe episode of recurrent major depressive disorder, without psychotic features 12/03/2023 EMILIO (generalized anxiety disorder) 12/03/2023 [facility] DJD(carpometacarpal dege nerative joint disease), localized primary, left 10/15/2022 Carpal tunnel syndrome on left 10/15/2022 Carpal tunnel syndrome of right wrist 08/21/2022 Nephrolithiasis 02/08/2021 Hypothyroidism (acquired) 05/29/2017 Encounters Date Type Department Care Team Description 03/01/2024 Travel 01/29/2024 11:20 AM CDT Office Visit [facility] [address] [place] [address] Carl Alan MD Musculoskeletal Problem (Follow up plantar fascia pain would like an injection ) 01/29/2024 Travel 01/10/2024 3:52 PM CDT - 01/10/2024 7:03 PM CDT Emergency [facility] [address] [place] [address] Felix Toscano DO Acute cystitis with hematuria (Primary Dx); Pelvic pain Discharge Disposition: Home Self Care 01/10/2024 Travel 01/02/2024 Telephone [facility] [address] [place] [address] Carl Alan MD Late Cancel Appointment 01/01/2024 Travel 12/10/2023 7:20 AM CDT Procedure Only [facility] [address] [place] [address] Carl Alan MD Procedure (Bilateral ultrasound guided inj... 12/10/2023 Travel 12/04/2023 Telephone [facility] [address] [place] [address] Chacha Ngo, RN [facility] Referral 12/03/2023 Telephone [facility] [address] [place] [address] Chacha Ngo RN [facility] Referral 12/02/2023 11:00 AM CDT - 12/02/2023 11:59 PM CDT Hospital Encounter [facility] [address] [place] [address] Severe episode of recurrent major depressive disorder, without psychotic features (HC) (Primary Dx); EMILIO (generalized anxiety disorder) 12/02/2023 Telephone [facility] [address] [place] [address] nAdrea Daviso S 12/02/2023 Telephone [facility] [address] [place] [address] Ryan Sierra S 12/02/2023 Orders Only [facility] [address] [place] [address] Guadalupe Rubi, HEADER SET UP OPERATOR <No scans attached> from Last 3 Months Family History Medical History Relation Name Comments Heart failure Father Stroke Father Good Health Mother Relation Name Status Comments Father Alive Mother Alive Social History Tobacco Use Types Packs/Day Years Used Date Smoking Tobacco: Former Cigars Smokeless Tobacco: Never Tobacco Cessation:Counseling Given: Yes Alcohol Use Standard Drinks/Week Comments Yes 0 (1 standard drink = 0.6 oz pur e alcohol) PHQ-2 Answer Date Recorded PHQ-2 TOTAL SCORE 5 12/02/2023 Social Connections Answer Date Recorded Frequency of Communication with Friends and Fami ly Not on file 08/10/2021 Financial Resource Strain Answer Date R ecorded Difficulty of Paying Living Expenses Not on file 08/10/2021 Difficulty of Paying Living Expenses Not on file 08/10/2021 Sex and Gender Information Value Date Recorded Sex Assigned at Not on file Gender Identity Not on file Sexual Orientation Not on file Obstetrics History Para Term AB IAB SAB Ectopic Multiple Livin g Live Births 3 3 Date Outcome GA Total Labor Labor/2nd/3rd Weight Sex Type Anes PTL Dasia A1 A5 Name Clin Last Filed Vital Signs Vital Sign Reading Time Taken Comments Blood Pressure 101/77 01/29/2024 11:44 AM CDT Pulse 75 01/29/2024 11:44 AM CDT Temperature 36.6 ??C (97.9 ??F) 01/29/2024 11:44 AM C DT Respiratory Rate 20 01/10/2024 4:01 PM CDT Oxygen Saturation 96% 01/29/2024 11:44 AM CDT Inhaled Oxygen Concentration - - Weight 112.5 kg (248 lb) 01/10/2024 4:30 PM CDT Height 167.6 cm (5' 6) 01/10/2024 4:30 PM CDT Body Mass Index 40.03 01/10/2024 4:30 PM CDT Plan of Treatment Upcoming Encounters Date Type Department Care Team (Late st Contact Info) Description 03/02/2024 11:00 AM CDT Office Visit [facility] [address] [place] [phone] Carl Alan MD [address] [place] [address] Arrived Health Maintenance Due Date Last Done Comments Tdap 12/22/1983 HIV for age 15-65 12/22/1987 Hepatitis C screening for age 18-79 1990 Tetanus booster 1992 Pap test for age 21-65 1993 Colonoscopy through age 75 2017 Lipids for age 45-75 2017 Mammogram for age 45-75 2017 BMI (ht and wt on same day) for age 18+ 04/06/2019 04/06/2018, 03/02/2018, 05/29/2017 Zoster (shingles) series for age 50+ (1 of 2) 2022 COVID-19 vaccine series (2022- season) 2023 09/15/2021, 11/21/2020, 10/19/2020 Influenza for age 50-64 04/11/2024 Depression screening for age 12+ 12/03/2024 12/04/2023, 12/03/2023, 12/02/2023, Additional history exists Pneumococcal series for age 6-64 Aged Out No longer eligible based on patient's age to complete this topic Medical Devices Implanted Type Area Fire Protection Fabricator Device Identifier Shelf Expiration Date Model / Serial / Lot Ancr Sut Mini Tightrope Kit - [id number] Implanted:Qty: 1 on 10/17/2022 by Carl Torres MD at [facility] Left: Wrist [employer] 03/10/2027 [id number] / / [id number] Procedures Procedure Name Priority Date/Time Associated Diagnosis Comments AMB EPIDURAL STEROID INJECTION Routine 03/02/2024 8:16 AM CDT Lumbar disc herniation DDD (degenerative disc disease), lumbar Lumbar radiculopathy Gluteal tendinitis of both buttocks CT ABDOMEN PELVIS W STAT 01/10/2024 6 :12 PM CDT RED CELL MORPHOLOGY STAT 01/10/2024 4 :13 PM CDT PLATELET ESTIMATE STAT 01/10/2024 4:1 3 PM CDT MANUAL DIFFERENTIAL STAT 01/10/2024 4 :13 PM CDT ,SERUM KRISTINE 01/10/2024 4:13 PM CDT CBC WITH AUTO DIFFERENTIAL STAT 01/10/2024 4:13 PM CDT HEPATIC FUNCTION PANEL STAT 01/10/2024 4:13 PM CDT BASIC METABOLIC PANEL STAT 01/10/2024 4:13 PM CDT CBC WITH AUTO DIFFERENTIAL STAT 01/10/2024 4:13 PM CDT URINE CULTURE KRISTINE 01/10/2024 3:59 PM CDT URINALYSIS MICROSCOPIC STAT 01/10/2024 3:59 PM CDT UA W/ SEDIMENT EXAM REFLEXED PER CRITERIA STAT 01/10/2024 3:59 PM CDT BEDSIDE US STUDY ARCHIVE Routine 12/10/2023 10:55 AM CDT Lumbar disc herniation DDD (degenerative disc disease), lumbar Lumbar radiculopathy Gluteal tendinitis of both buttocks from Last 3 Months Results * CT ABDOMEN PELVIS W (01/10/2024 6:12 PM CDT) Anatomical Region Laterality Modality Abdomen, Pelvis, AORTA, LIVER, SPLEEN Computed Tomography 01/10/2024 6:44 PM CDT Narrative 01/10/2024 6:44 PM CDT For Patients: ??As a result of the Century Cures Act, medical imaging exams and procedure reports are released immediately into your electronic medical record. ??You may view this report before your referring provider. ??If you have questions, please contact your health care provider. Indication: Flank pain, kidney stone suspected Flank pain, dysuria. Eval for stone, pyelo Technique: CT abdomen/pelvis with IV contrast, 100 mL Omnipaque 300 Comparison: CT abdomen/pelvis on February 07, 2021 Findings: Lower thorax: Minimal dependent and bibasilar atelectatic changes. Calcified granuloma in the right lower lobe. Abdomen/pelvis: Status post cholecystectomy. No significant biliary ductal dilatation. The liver, spleen, pancreas, and bilateral adrenal glands are unremarkable. The kidneys are normal in size and perfuses in a normal fashion. No suspicious enhancing renal masses or lesions. There are a few subcentimeter hypodensities in the kidneys, too small to characterize, but likely benign cysts. Nonobstructing renal calculi bilaterally, measuring up to approximately 4 millimeters in the lower pole of the left kidney. There is no hydroureteronephrosis. The bladder is unremarkable. The uterus is within normal limits in appearance with a well-positioned intrauterine device. No suspicious adnexal lesions. No evidence of bowel obstruction or inflammation. The appendix is normal. Moderate stool burden throughout the colon. No free fluid or free air. No abscess. No abdominopelvic lymphadenopathy. The vasculature is within normal limits in appearance. There are a few small pelvic phleboliths. Soft tissue/musculoskeletal: Diastasis recti with small fat containing umbilical hernia. No acute fracture or malalignment. Grade 1 anterolisthesis of L4 on L5 with extensive facet degenerative changes at L4-L5. No suspicious osseous lesions. Impression: 1. No CT evidence of an acute process involving the abdomen or pelvis. 2. Nonobstructing renal calculi bilaterally. No hydroureteronephrosis. Please note that all CT scans at this facility use dose modulation, iterative reconstruction, and/or weight-based dosing when appropriate to reduce radiation dose to as low as reasonably achievable. Dictated by Jerome Smith MD @ 01/10/2024 6:44:12 PM (Electronically Signed) Procedure Note Jerome Smith MD - 01/10/2024 For Patients: As a result of the 21st Century Cures Act, medical imagingexams and procedure reports are released immediately into your electronicmedical record. You may view this report before your referring provider.If you have questions, please contact your health care provider. Indication: Flank pain, kidney stone suspected Flank pain, dysuria. Eval for stone, pyelo Technique: CT abdomen/pelvis with IV contrast, 100 mL Omnipaque 300 Comparison: CT abdomen/pelvis on February 07, 2021 Findings: Lower thorax: Minimal dependent and bibasilar atelectatic changes. Calcified granulomain the right lower lobe. Abdomen/pelvis: Status post cholecystectomy. No significant biliary ductal dilatation. Theliver, spleen, pancreas, and bilateral adrenal glands are unremarkable. The kidneys are normal in size and perfuses in a normal fashion. Nosuspicious enhancing renal masses or lesions. There are a fewsubcentimeter hypodensities in the kidneys, too small to characterize, butlikely benign cysts. Nonobstructing renal calculi bilaterally, measuringup to approximately 4 millimeters in the lower pole of the left kidney.There is no hydroureteronephrosis. The bladder is unremarkable. The uterus is within normal limits in appearance with a well- positionedintrauterine device. No suspicious adnexal lesions. No evidence of bowel obstruction or inflammation. The appendix is normal.Moderate stool burden throughout the colon. No free fluid or free air. No abscess. No abdominopelvic lymphadenopathy.The vasculature is within normal limits in appearance. There are a fewsmall pelvic phleboliths. Soft tissue/musculoskeletal: Diastasis recti with small fat containing umbilical hernia. No acutefracture or malalignment. Grade 1 anterolisthesis of L4 on L5 withextensive facet degenerative changes at L4-L5. No suspicious osseouslesions. Impression: 1. No CT evidence of an acute process involving the abdomen or pelvis. 2. Nonobstructing renal calculi bilaterally. No hydroureteronephrosis. Please note that all CT scans at this facility use dose modulation,iterative reconstruction, and/or weight-based dosing when appropriate toreduce radiation dose to as low as reasonably achievable. Dictated by Jerome Smith MD @ 01/10/2024 6:44:12 PM (Electronically Signed) Felix Toscano DO CT * CBC WITH AUTO DIFFERENTIAL (01/10/2024 4:13 PM CDT) WHITE BLOOD COUNT 9.6 4.5 - 11.0 thou/cu mm 01/10/2024 5:03 PM CDT [facility] RED BLOOD COUNT 4.75 4.00 - 5.20 mil/cu mm 01/10/2024 5:03 PM CDT [facility] HEMOGLOBIN 15.6 12.0 - 16.0 g/dL 01/10/2024 5:03 PM CDT [facility] HEMATOCRIT 44.2 33.0 - 51.0 % 01/10/2024 5:03 PM T [facility] MCV 93 80 - 100 fL 01/10/2024 5:03 PM T [facility] MCH 32.8 26.0 - 34.0 pg 01/10/2024 5:03 PM [facility] MCHC 35.3 32.0 - 36.0 g/dL 01/10/2024 5:03 PM [facility] RDW 12.3 11.5 - 15.5 % 01/10/2024 5:03 PM T [facility] PLATELET COUNT 289 140 - 440 thou/cu mm 01/10/2024 5:03 PM [facility] MPV 9.1 6.5 - 11.0 fL 01/10/2024 5:03 PM T [facility] Blood BLOOD SPECIMEN / Unknown IV Start / Unknown 01/10/2024 4:13 PM CDT 01/10/2024 4:21 PM CDT Felix Toscano DO HEMATOLOGY [facility] [address] [place] [address] * (ABNORMAL) RED CELL MORPHOLOGY (01/10/2024 4:13 PM CDT) RBC COMMENT Present(A) RBC morphology appears normal, RBC morphology within normal limits for newborns. 01/10/2024 5:03 PM CDT [facility] WBC REACTIVE LYMPHS Present 01/10/2024 5:03 PM CDT [facility] Blood BLOOD SPECIMEN / Unknown IV Start / Unknown 01/10/2024 4:13 PM CDT 01/10/2024 4:21 PM CDT Felix Toscano DO HEMATOLOGY [facility] [address] [place] [address] * PLATELET ESTIMATE (01/10/2024 4:13 PM CDT) PLATELET ESTIMATE Adequate Adequate, No estimate 01/10/2024 5:03 PM [facility] Blood BLOOD SPECIMEN / Unknown IV Start / Unknown 01/10/2024 4:13 PM CDT 01/10/2024 4:21 PM CDT Felix Toscano DO HEMATOLOGY [facility] [address] [place] [address] * MANUAL DIFFERENTIAL (01/10/2024 4:13 PM CDT) Pathologist [facility] % NEUTROPHILS 65.0 % 01/10/2024 5:03 PM [facility] % LYMPHOCYTES 29.0 % 01/10/2024 5:03 PM [facility] % MONOCYTES 3.0 % 01/10/2024 5:03 PM [facility] % EOSINOPHILS 1.0 % 01/10/2024 5:03 PM [facility] % BASOPHILS 2.0 % 01/10/2024 5:03 PM [facility] NEUTROPHILS ABSOLUTE 6.2 1.7 - 7.0 thou/cu mm 01/10/2024 5:03 PM [facility] LYMPHOCYTES ABSOLUTE 2.8 0.9 - 2.9 thou/cu mm 01/10/2024 5:03 PM [facility] MONOCYTES ABSOLUTE 0.3 <0.9 thou/cu mm 01/10/2024 5:03 PM [facility] EOSINOPHILS ABSOLUTE 0.1 <0.5 thou/cu mm 01/10/2024 5:03 PM [facility] BASOPHILS ABSOLUTE 0.2 <0.3 thou/cu mm 01/10/2024 5:03 PM [facility] Blood BLOOD SPECIMEN / Unknown IV Start / Unknown 01/10/2024 4:13 PM CDT 01/10/2024 4:21 PM CDT Felix Toscano DO HEMATOLOGY [facility] [address] [place] [address] * ,SERUM (01/10/2024 4:13 PM CDT) ,SERU M Negative Negative 01/10/2024 4:36 PM T [facility] Blood BLOOD SPECIMEN / Unknown IV Start / Unknown 01/10/2024 4:13 PM CDT 01/10/2024 4:21 PM CDT Felix Toscano DO CHEMISTRY Performing Organization Address City/[facility]/ZIP Co de Phone Number [facility] [address] [place] [address] * HEPATIC FUNCTION PANEL (01/10/2024 4:13 PM CDT) Pathologist [facility] ALBUMIN 4.4 4.0 - 4.9 g/dL 01/10/2024 4:52 PM T [facility] PROTEIN,TOTAL 7.1 6.0 - 8.0 g/dL 01/10/2024 4:52 PM T [facility] BILIRUBIN,TOTAL 0.4 0.0 - 1.2 mg/dL 01/10/2024 4:52 PM [facility] BILIRUBIN,DIRECT <0.2 0.0 - 0.3 mg/dL 01/10/2024 4:52 PM T [facility] BILIRUBIN,INDIRE CT 01/10/2024 4:52 PM [facility] Comment:Unable to calculate, Direct Bili <0.2 ALK PHOSPHATASE 55 35 - 104 IU/L 01/10/2024 4:52 PM [facility] ALT (SGPT) 12 10 - 35 IU/L 01/10/2024 4:52 PM [facility] AST (SGOT) 25 10 - 35 IU/L 01/10/2024 4:52 PM T [facility] Blood BLOOD SPECIMEN / Unknown IV Start / Unknown 01/10/2024 4:13 PM CDT 01/10/2024 4:21 PM CDT Felix Toscano DO CHEMISTRY [facility] [address] [place] [address] * (ABNORMAL) BASIC METABOLIC PANEL (01/10/2024 4:13 PM CDT) SODIUM 139 136 - 145 mmol/L 01/10/2024 4:52 PM [facility] POTASSIUM 4.9 3.5 - 5.1 mmol/L 01/10/2024 4:52 PM [facility] CHLORIDE 105 98 - 107 mmol/L 01/10/2024 4:52 PM [facility] CO2,TOTAL 26 22 - 29 mmol/L 01/10/2024 4:52 PM [facility] ANION GAP 8 5 - 18 01/10/2024 4:52 PM [facility] GLUCOSE 86 70 - 99 mg/dL 01/10/2024 4:52 PM [facility] CALCIUM 9.2 8.6 - 10.0 mg/dL 01/10/2024 4:52 PM [facility] BUN 15 6 - 20 mg/dL 01/10/2024 4:52 PM [facility] CREATININE 0.98(H) 0.50 - 0.90 mg/dL 01/10/2024 4:52 PM [facility] BUN/CREAT RATIO 15 10 - 20 4:52 PM [facility] eGFR 70(L) >90 mL/min/1.7 3m2 01/10/2024 4:52 PM [facility] Comment:As of 2021, eG FR is calculated by the CKD-EPI creatinine equation without race adjustment. ??eGFR can be influenced by muscle mass, exercise, and diet. ??The reported eGFR is an estimation only and is only applicable if the renal function is stable. Blood BLOOD SPECIMEN / Unknown IV Start / Unknown 01/10/2024 4:13 PM CDT 01/10/2024 4:21 PM CDT Felix Toscano DO CHEMISTRY Performing Organization Address City/[facility]/ZIP Co de Phone Number [facility] [address] [place] [address] * (ABNORMAL) URINALYSIS MICROSCOPIC (01/10/2024 3:59 PM CDT) RBC >100(A) 0-2, None Seen /HPF 01/10/2024 4:35 PM CDT [facility] WBC 51-100(A) 0-2, 3-5, None Seen /HPF 01/10/2024 4:35 PM CDT [facility] BACTERIA Few None Seen, Rare, Few Bacteria/ HPF 01/10/2024 4:35 PM CDT [facility] EPITHELIAL CELLS Few None Seen, Few Epi/HPF 01/10/2024 4:35 PM CDT [facility] Mucus Present 01/10/2024 4:35 PM CDT [facility] WHITE CELL CLUMPS Present(A) (none) 01/10/2024 4:35 PM CDT [facility] Urine URINE SPECIMEN / Unknown Non-Blood / Unknown 01/10/2024 3:59 PM CDT 01/10/2024 4:03 PM CDT Felix Toscano DO URINE [facility] [address] [place] [address] * (ABNORMAL) URINE CULTURE (01/10/2024 3:59 PM CDT) CULTURE RESULT(A) 01/13/2024 10:42 AM CDT [facility] CULTURE >100,000 CFU/mL Escherichia coli 01/13/2024 10:42 AM CDT [facility] Urine URINE SPECIMEN / Unknown Non-Blood / Unknown 01/10/2024 3:59 PM CDT 01/10/2024 4:03 PM CDT Narrative Organism Antibiotic Method Susceptibility Escherichia coli TRIMETHOPRIM/SULF S Escherichia coli AMPICILLIN S Escherichia coli CEFAZOLIN-UC S Comment:Cefazolin-UC interpretations are for therapy of uncomplicated UTIs due to E.coli, K.pneumoniae, or P.mirablis. Cefazolin breakpoint is used as a surrogate to predict results for the oral agents - cefdinir, cefuroxime, and cephalexin, when used for therapy of uncomplicated UTIs due to E coli, K, pneumoniae, and P. mirabilis. The FDA recommends cefadroxil susceptibility can be deduced from cefazolin. Escherichia coli GENTAMICIN S Escherichia coli CEFTRIAXONE S Escherichia coli CEFTAZIDIME S Escherichia coli LEVOFLOXACIN S Escherichia coli CIPROFLOXACIN S Escherichia coli PIPERACILLIN/TAZO S Escherichia coli AMPICILLIN/SULBACTAM S Escherichia coli CEFEPIME S Escherichia coli NITROFURANTOIN S Escherichia coli TOBRAMYCIN S Escherichia coli MEROPENEM S Felix Toscano DO MICROBIOLOGY [facility] [address] [place] [address], * (ABNORMAL) UA W/ SEDIMENT EXAM REFLEXED PER CRITERIA (01/10/2024 3:59 PM CDT) COLOR Red(A) Yellow Color 01/10/2024 4:26 PM CDT [facility] CLARITY Turbid(A) Clear Clarity 01/10/2024 4:26 PM CDT [facility] SPECIFIC GRAVITY,URINE Unable to interpret due to interfering substance(A) 1.010, 1.015, 1.020, 1.025 01/10/2024 4:26 PM T [facility] Comment:Canceled- Interferin g Substance PH,URINE Unable to interpret due to interfering substance(A) 6.0, 7.0, 8.0, 5.5, 6.5, 7.5, 8.5 01/10/2024 4:26 PM [facility] Comment:Canceled- Interferin g Substance UROBILINOGEN,Q UALITATIVE Unable to interpret due to interfering substance(A) Normal EU/dl 01/10/2024 4:26 PM [facility] Comment:Canceled- Interferin g Substance PROTEIN, URINE Unable to interpret due to interfering substance(A) Negative mg/dL 01/10/2024 4:26 PM [facility] Comment:Canceled- Interferin g Substance GLUCOSE, URINE Unable to interpret due to interfering substance(A) Negative mg/dL 01/10/2024 4:26 PM [facility] Comment:Canceled- Interferin g Substance KETONES,URINE Unable to interpret due to interfering substance(A) Negative mg/dL 01/10/2024 4:26 PM [facility] Comment:Canceled- Interferin g Substance BILIRUBIN,URIN E Unable to interpret due to interfering substance(A) Negative 01/10/2024 4:26 PM [facility] Comment: A variety of metabolites and/or medications may result in a positive bilirubin result. ??Clinical correlation is recommended. Canceled- Interfering Substance OCCULT BLOOD,URINE Unable to interpret due to interfering substance(A) Negative 01/10/2024 4:26 PM [facility] Comment:Canceled- Interferin g Substance NITRITE Unable to interpret due to interfering substance(A) Negative 01/10/2024 4:26 PM [facility] Comment:Canceled- Interferin g Substance LEUKOCYTE ESTERASE Unable to interpret due to interfering substance(A) Negative 01/10/2024 4:26 PM [facility] Comment:Canceled- Interferin g Substance Urine URINE SPECIMEN / Unknown Non-Blood / Unknown 01/10/2024 3:59 PM CDT 01/10/2024 4:03 PM CDT Felix Toscano DO URINE [facility] [address] [place] [place] [id number] * BEDSIDE US STUDY ARCHIVE (12/10/2023 10:55 AM CDT) Narrative Kae Ling - 12/10/2023 10:55 AM CDT The patient was seen for ultrasound guided injection by Dr. Carl Alan. Ultrasound was not used for diagnostic purposes, but to guide the needle placement and document the position of the injection. ?? See patient's EPIC encounter for the detail of the procedure; see YENIFER for saved images of the injection. Carl Alan MD PROCEDURE ORD from Last 3 Months Advance Directives * Full Code (Latest Code Status on File) Date Activated Date Inactivated Comments 10/17/2022 9:48 AM 10/17/2022 5:35 PM Question Answer Comments Code Status Discussion: Not Discussed * Full Code Date Activated Date Inactivated Comments 08/22/2022 7:05 AM 08/22/2022 3:47 PM Question Answer Comments Code Status Discussion: Not Discussed * Full Code Date Activated Date Inactivated Comments 02/07/2021 11:07 PM 02/08/2021 3:24 PM Question Answer Comments Code Status Discussion: Discussed Care Teams Geoduck Diver Relationship Specialty Start Date End Date Bro aDmon PA [address] [place] [address] [facility] [place] [address] PCP - General Physician It Disaster Recovery Manager 08/21/23
--- OUTSIDE RECORDS SUMMARY | 2024-03-02 10:32 | XMS_ITS ---
Author Organization [facility] Address [address] [place] [address] Care Team Providers Care Traveling Engineer Name Role Phone Garth Granger Primary Care Provider REASON FOR VISIT Awaiting records to be sent Encounters Encounter Location Date Provider Diagnosis [facility] [address] [address] 01/15/2024 Garth Granger Plan Of Treatment Next Appt Details Provider Name:Garth Johnson rd, 03/22/2024 02:00:00 PM, [address], [place], [address], Progress Notes * [address] ADOB:1970 (53 yo F)Acc No.[id number]:01/15/2024 Patient:?GEOVANI LANE Spivey :1970???Age:53 Y???Sex:Female Address:[place], [address] * true * Date:? Generated for Printi ng/Fakerwing/eTransmitting on:?03/02/2024 10:31 AM CDT
== END 2024-03-02 10:26 | disposition home or self-care (01) ==
LOC: INJ CL 10:28
PROVIDERS: PCP Physician Assistant; Visit Provider Family Medicine
DX: M54.16 Radiculopathy, lumbar region (principal); M51.36 Other intervertebral disc degeneration, lumbar region
CPT/HCPCS: 62323; J0702; Q9966